=== PATIENT | female | born 1960 | race Caucasian/White ===

== ENCOUNTER 2016-07-07 09:02 | Day surgery (SDC) | payer OTHER ==
[~2016-07-07] VITALS: Ht 160 cm; Wt 69.8 kg
[~2016-07-07 09:02] MED LIST: 0.9% Sodium Chloride 1,000 ML IV SCH; NARA2.5T2 PO; SERT100T9 PO; Sodium Chloride LOK Flush 10 mL Syringe IV PRN; fentaNYL-PF 50 mCg/mL 2 mL Inj IVPUSH PRN
[2016-07-07 09:32] VITALS: BP 112/54; PULSE 44; RESP 16; O2SAT 95
--- NOTE | 2016-07-07 10:59 | PCM.ENDCOL ---
Colonoscopy Date of Service: Jul 07, 2016 Physician Julian Huynh MD Pre Procedure Diagnosis: Screening Post Procedure Dx & Findings: Hemorrhoids Procedure Colonoscopy Prep adequate Withdrawal time 14 minutes After unremarkable rectal examination the Olympus video colonoscope was inserted patient's anal canal and was advanced to cecum. Landmarks were identified including the ileocecal valve and appendiceal orifice. Scope was withdrawn systematically. Visualized colonic mucosa showed healthy shiny mucosa with normal healthy-appearing vasculature. In the rectum retroflexion was done which showed hemorrhoids. Anal canal was inspected carefully on the way out and hemorrhoids noted. Impression Hemorrhoids Recommendation Repeat colonoscopy in 10 years if there is no family or personal history of colon cancer or polyp. If so repeat in 5 years. Presedation Assessment Risks and Benefits Informed consent was obtained from the patient after all risks and benefits including but not limited to drug reaction, infection, pain, bleeding, perforation, as well as alternatives were discussed. Patient monitoring Continuous pulse oximetry, cardiac monitoring, blood pressure monitoring, IV access, and oxygen at 2L per nasal cannula. Periprocedural Fentanyl: Fentanyl 50mcg Incrementally Midazolam: Midazolam 3mg Incrementally Complications There were no periprocedural complications identified. Post Procedure Plan Post Procedure Recommendations 1. Restrict activities today. 2. Resume normal activities in the morning. 3. Resume medications. 4. Patient informed of normal post procedure side effects as bloating, drowsiness, blood streaking in the stool. 5. average risk CRCS. If colon polyps come back as: -Hyperplastic- can repeat colonoscopy in 10 years -Tubular adenoma- repeat colonoscopy in 5 years -Tubulovillous/villous adenoma- repeat colonoscopy in 3 years -If any dysplasia- return to clinic as soon as possible 6. Please don't hesitate to call me with any questions. Julian Huynh MD Jul 07, 2016 10:59
[2016-07-07 11:02] VITALS: BP 106/46; PULSE 46; RESP 12; O2SAT 97
[2016-07-07 11:11] VITALS: BP 100/51; PULSE 48; RESP 12; O2SAT 100
== END 2016-07-07 23:59 | disposition home or self-care (01) ==
LOC: END 09:02
PROVIDERS: ATTEND Internal Medicine
PROC: 0DJD8ZZ Inspection of Lower Intestinal Tract, Via Natural or Artificial Opening Endoscopic (ICD-10-PCS; principal; 2016-07-07 10:00)
DX: Z12.11 Encounter for screening for malignant neoplasm of colon (principal)
CPT/HCPCS: 99153; G0121; G0500; J2250; J3010; J7030